=== PATIENT | male | born 1955 | race Caucasian/White ===

== ENCOUNTER 2022-03-06 19:32 | Emergency (ER) | payer BC ==
[~2022-03-06] VITALS: Ht 182.9 cm; Wt 86.6 kg
[2022-03-06] MEDS ORDERED: HYDROCODON-ACE1 EA10 PO (20:39)
[2022-03-06] MEDS ORDERED: LOSARTAN POTASS25 MG PO (21:06)
[2022-03-06] MEDS ORDERED: CARVEDILOL6.25 MG PO (21:06)
[2022-03-06] MEDS ORDERED: MAGNESIUM200 MG (21:07)
[2022-03-06] MEDS ORDERED: GALZIN25 MG PO (21:07)
[2022-03-06] MEDS ORDERED: ATORVASTATIN CA40 MG PO (21:07)
[2022-03-06] MEDS ORDERED: ASPIRIN81 MG PO (21:07)
== END 2022-03-06 21:30 | disposition home or self-care (01) ==
LOC: ED 19:32
DX: S52.531A Colles' fracture of right radius, initial encounter for closed fracture (principal); Z88.0 Allergy status to penicillin; Z79.82 Long term (current) use of aspirin; Z79.899 Other long term (current) drug therapy; X58.XXXA Exposure to other specified factors, initial encounter
CPT/HCPCS: 29125; 73110; 99283-25; A9270